=== PATIENT | female | born 1985 | race Caucasian/White ===

== ENCOUNTER 2021-08-24 14:15 | Emergency (ER) | payer OTHER ==
[~2021-08-24] VITALS: Ht 162.6 cm; Wt 116.4 kg
[2021-08-24] MEDS ORDERED: HYDROCODONE/ACETAMINOPHEN 5-325 MG TABLET PO ONE (16:30)
[2021-08-24 18:31] LABS: COVID AG,FIA SOURCE NASOPHARYNGEAL
[2021-08-24 18:40] VITALS: BP 135/90
[2021-08-24] MEDS ORDERED: CYCL10TA17 PO (18:56)
== END 2021-08-24 19:05 | disposition home or self-care (01) ==
LOC: EMS 14:15
DX: M79.601 Pain in right arm (principal); R20.0 Anesthesia of skin; F17.210 Nicotine dependence, cigarettes, uncomplicated; Z20.822 Contact with and (suspected) exposure to COVID-19
CPT/HCPCS: 72040; 87426; 99284; U0003; Z7502; Z7610

== ENCOUNTER 2021-12-08 14:11 | Emergency (ER) | payer OTHER ==
[~2021-12-08] VITALS: Ht 162.6 cm; Wt 119.1 kg
[~2021-12-08 14:11] MED LIST: CYCL-448 PO
[2021-12-08 14:21] VITALS: BP 138/88
[2021-12-08] MEDS ORDERED: DULO-113 PO (16:27)
[2021-12-08] MEDS ORDERED: BUPR1FIL7 SL (16:27)
[2021-12-08] MEDS ORDERED: GABA-1181 PO (16:27)
[2021-12-08] MEDS ORDERED: PRAZ2 PO (16:28)
== END 2021-12-08 17:50 | disposition home or self-care (01) ==
LOC: EMS 14:11
DX: F11.90 Opioid use, unspecified, uncomplicated (principal); R11.0 Nausea; F17.210 Nicotine dependence, cigarettes, uncomplicated
CPT/HCPCS: 93005; 99283